=== PATIENT | female | born 1965 | race American Indian/Alaskan Native ===

== ENCOUNTER 2017-09-28 10:28 | Emergency (ER) | payer MEDICAID, OTHER ==
[2017-09-28 10:56] VITALS: BP 149/84; PULSE 84; RESP 16; TEMP 99.2; O2SAT 99
--- NOTE | 2017-09-28 12:41 | C.PDOC ---
History Of Present Illness 52-year-old female, presents to the emergency department with complaints of runny nose, cough and sore throat that started two days ago. Patient denies fever, dizziness, back pain, rashes, recent travel, or any other associated symptoms. No other complaints at this time. HPI: Influenza Time Seen by Provider: 09/28/17 10:56 Chief Complaint: Flu-like Symptoms History Per: Patient Exam Limitations: no limitations Onset/Duration Of Symptoms: Days Past Medical History Reviewed: Historical Data, Nursing Documentation, Vital Signs Vital Signs: Last Vital Signs Temp 99.2 F 09/28/17 10:53 Pulse 84 09/28/17 10:53 Resp 16 09/28/17 10:53 BP 149/84 09/28/17 10:53 Pulse Ox 99 09/28/17 10:53 - Medical History PMH: Arthritis, Bipolar Disorder, Depression, HTN - [facility] Procedures GROUP PSYCHOTHERAPY (04/18/16) INDIVID PSYCHOTHERAP NEC (02/09/15) INDIVIDUAL PSYCHOTHERAPY, BEHAVIORAL (04/18/16) INJECT/INFUSE NEC (01/03/14) OTHER GROUP THERAPY (02/09/15) PSYCHIAT DRUG THERAP NEC (09/11/14) Family History: States: No Known Family Hx - Social History Hx Alcohol Use: No Hx Substance Use: No - Immunization History Hx Tetanus Toxoid Vaccination: No Hx Influenza Vaccination: No Hx Pneumococcal Vaccination: No Review Of Systems Constitutional: Negative for: Fever, Chills ENT: Positive for: Nose Discharge, Throat Pain. Negative for: Ear Pain, Ear Discharge, Throat Swelling Respiratory: Positive for: Cough. Negative for: Shortness of Breath Gastrointestinal: Negative for: Nausea, Vomiting Skin: Negative for: Rash Neurological: Negative for: Headache, Dizziness Physical Exam - Physical Exam Appears: Non-toxic, No Acute Distress Skin: Warm, Dry, No Diaphoretic, No Rash, No Jaundice Head: Normacephalic Eye(s): bilateral: PERRL Nose: Normal, No Flaring, Discharge (clear B/L rhinorrhea) Oral Mucosa: Moist Lips: Normal Appearing Throat: No Erythema, No Exudate (Uvula midline.) Neck: Normal ROM, Trachea Midline, Supple, Other ((-)meningeal signs) Chest: Symmetrical Cardiovascular: Rhythm Regular, No Murmur Respiratory: Normal Breath Sounds, No Accessory Muscle Use, No Rales, No Rhonchi , No Wheezing Extremity: Normal ROM, No Deformity, No Swelling Neurological/Psych: Oriented x3 Medical Decision Making Medical Decision Making: Plan: Patient treated with Motrin, Tamiflu, Tylenol and Prednisone. Reassess: Patient is resting comfortably, tolerating PO, and is afebrile at this time. Clinical signs and symptoms are not suggestive of sepsis, meningitis, or pneumonia. Patient will be discharge home, and instructed to follow up with his/ her physician in 1-2 days without fail. Patient was instructed to return for any worsening symptoms, persistent fever, neck pain, rash, abdominal pain, or vomiting. - ECG O2 Sat by Pulse Oximetry: 99 (RA) Pulse Ox Interpretation: Normal Disposition Counseled Patient/Family Regarding: Diagnosis, Need For Followup, Rx Given - Disposition Referrals: [facility] [Outside] Disposition: HOME/ ROUTINE Disposition Time: 12:38 Condition: FAIR Additional Instructions: Follow up with your doctor, or our clinic. return to the ED with any other concerns. Prescriptions: Ibuprofen [Motrin] 600 mg PO TID #15 tab Oseltamivir [Tamiflu] 1 cap PO BID #10 cap Instructions: Flu, Adult (DC) Forms: General Discharge Instructions, [facility] (Nepali), Work Excuse - POA Present On Arrival: None - Clinical Impression Clinical Impression: Influenza, Influenza-like illness - Scribe Statement The provider has reviewed the documentation as recorded by the Scribe (Yolanda Harper) All medical record entries made by the Scribe were at my direction and personally dictated by me. I have reviewed the chart and agree that the record accurately reflects my personal performance of the history, physical exam, medical decision making, and the department course for this patient. I have also personally directed, reviewed, and agree with the discharge instructions and disposition.
== END 2017-09-28 12:44 | disposition home or self-care (01) ==
LOC: C.ER 10:28
DX: J11.1 Influenza due to unidentified influenza virus with other respiratory manifestations (principal)

== ENCOUNTER 2018-02-05 19:54 | Inpatient (IN) | payer MEDICAID, OTHER ==
[2018-02-05 19:54] VITALS: BMI 21.7
[2018-02-05 20:46] LABS: BASO # 0.1 K/uL (0.0-0.2); BASO % 1.1 % (0.0-2.0); EOS # 0.3 K/uL (0.0-0.7); EOS % 3.8 % (0.0-4.0); HEMOGLOBIN 12.2 g/dL (11.0-16.0); LYMPH # 3.2 K/uL (1.0-4.3); LYMPH % 37.8 % (20.0-40.0); MEAN CELL VOLUME 92.7 fL (81.0-99.0); MEAN CORPUSCULAR HGB CONC 34.5 g/dL (33.0-37.0); MONO # 0.7 K/uL (0.0-0.8); MONO % 7.7 % (0.0-10.0); NEUT # 4.2 K/uL (1.8-7.0); NEUT % 49.6 % (50.0-75.0); RBC 3.82 Mil/uL (3.80-5.20); RED CELL DISTRIBUTION WIDTH 13.7 % (11.5-14.5); WHITE BLOOD COUNT 8.5 K/uL (4.8-10.8)
--- NOTE | 2018-02-05 20:49 | C.PDOC ---
History Of Present Illness 53 y/o female presents to ED for detox from crack, alcohol and marijuana. Denies any other physical complaints. Time Seen by Provider: 02/05/18 20:13 Chief Complaint (Nursing): Medical Clearance History Per: Patient History/Exam Limitations: no limitations Onset/Duration Of Symptoms: Hrs Current Symptoms Are (Timing): Still Present Recent travel outside of the [place]: No Past Medical History Reviewed: Historical Data, Nursing Documentation, Vital Signs Vital Signs: Last Vital Signs Temp 98.1 F 02/05/18 20:13 Pulse 82 02/05/18 20:13 Resp 18 02/05/18 20:13 BP 122/85 02/05/18 20:13 Pulse Ox 98 02/05/18 21:28 - Medical History PMH: Arthritis, Bipolar Disorder, Bronchitis, Depression, HTN Denies: Alzheimer's Disease, Anemia, Asthma, Atrial Fibrillation, Cardia Arrhythmia, CHF, COPD, Dementia, Emphysema, HIV, Hypercholesterolemia, Hyperthyroidism, Hypothyroidism, Kidney Stones, Migraine, Mitral Valve Prolapse , Multiple Sclerosis, Parkinson's Disease, Peripheral Edema, Pneumonia, Pulmonary Embolism, Chronic Kidney Disease, Seizures, Sickle Cell Disease, Sleep Apnea, TIA Surgical History: Denies: Pacemaker - [facility] Procedures GROUP PSYCHOTHERAPY (04/18/16) INDIV GAS OR WATER METER INSTALLER FOR SUBSTANCE ABUSE TREATMENT, BEHAVIORAL (12/14/17) INDIVID PSYCHOTHERAP NEC (02/09/15) INDIVIDUAL PSYCHOTHERAPY, BEHAVIORAL (04/18/16) INJECT/INFUSE NEC (01/03/14) OTHER GROUP THERAPY (02/09/15) PSYCHIAT DRUG THERAP NEC (09/11/14) Family History: States: Unknown Family Hx - Social History Hx Alcohol Use: Yes Hx Substance Use: Yes - Immunization History Hx Tetanus Toxoid Vaccination: No Hx Influenza Vaccination: No Hx Pneumococcal Vaccination: No Review Of Systems Except As Marked, All Systems Reviewed And Found Negative. Constitutional: Positive for: Other (DETOX) Physical Exam - Physical Exam Appears: Well, Non-toxic, No Acute Distress, Other (No obvious trauma or injuries ) Skin: Normal Color, Warm, Dry Head: Atraumatic, Normacephalic Eye(s): bilateral: Normal Inspection, PERRL, EOMI Nose: Normal, No Discharge Oral Mucosa: Moist Neck: Supple Chest: Symmetrical, No Tenderness Cardiovascular: Rhythm Regular Respiratory: Normal Breath Sounds, No Decreased Breath Sounds, No Rales, No Rhonchi, No Wheezing Gastrointestinal/Abdominal: Soft, No Tenderness Extremity: Normal ROM, No Deformity Extremity: Bilateral: Atraumatic, Normal Color And Temperature, Normal ROM Neurological/Psych: Oriented x3, Normal Speech (Speaking in full sentences ), Other (No focal deficits ) Gait: Steady ED Course And Treatment - Laboratory Results Result Diagrams: 02/05/18 20:35 02/05/18 20:35 O2 Sat by Pulse Oximetry: 98 (RA) Pulse Ox Interpretation: Normal Medical Decision Making Medical Decision Making: Ordered blood work and urinalysis. 9:15PM: - Patient is medically cleared and is stable for admission. no urinary symptoms will not treat ua. Disposition - Disposition Disposition: HOSPITALIZED Disposition Time: 22:27 Condition: STABLE Forms: [facility] (Welsh) - Clinical Impression Clinical Impression: Alcohol use disorder - Scribe Statement The provider has reviewed the documentation as recorded by the Scribe Clarence Lopez All medical record entries made by the Scribe were at my direction and personally dictated by me. I have reviewed the chart and agree that the record accurately reflects my personal performance of the history, physical exam, medical decision making, and the department course for this patient. I have also personally directed, reviewed, and agree with the discharge instructions and disposition. Decision To Admit - Pt Status Changed To: Hospital Disposition Of: Inpatient - Admit Certification Admit to Inpatient:: After my assessment, the patient will require hospitalization for at least two midnights. This is because of the severity of symptoms shown, intensity of services needed, and/or the medical risk in this patient being treated as an outpatient. - InPatient: Physician Admission Certification: I certify that this patient requires 2 or more midnights of care for the following reason:: needs detox - . Bed Request Type: Detox Admitting Physician: Estrella Cota Patient Diagnosis: Alcohol use disorder
[2018-02-05 20:50] LABS: SQUAMOUS EPITHIAL 23 /hpf (0-5); URINE BACTERIA RARE (<OCC); URINE BILIRUBIN NEGATIVE (NEGATIVE); URINE BLOOD NEGATIVE (NEGATIVE); URINE CLARITY Hazy (Clear); URINE COLOR Yellow (YELLOW); URINE GLUCOSE (UA) NORMAL (Normal); URINE LEUKOCYTE ESTERASE 1+ Leu/uL (Negative); URINE PROTEIN NEGATIVE (NEGATIVE)
[2018-02-05 20:59] LABS: ALB/GLOB RATIO 1.4 (1.0-2.1); ALBUMIN 4.4 g/dL (3.5-5.0); ALT/SGPT 19 U/L (9-52); AST/SGOT 20 U/L (14-36); BLOOD UREA NITROGEN 15 mg/dL (7-17); CALCIUM 9.3 mg/dl (8.6-10.4); GFR AFRICAN-AMERICAN > 60; GFR NON-AFRICAN AMERICAN > 60
[2018-02-05 21:02] LABS: BARBITURATES, UR NEGATIVE (NEGATIVE); BENZODIAZEPINES, UR NEGATIVE (NEGATIVE); OPIATES, UR NEGATIVE (NEGATIVE); PHENCYCLIDINE, UR NEGATIVE (NEGATIVE)
--- NOTE | 2018-02-05 22:36 | PCM.BM ---
<Maycol Medina - Last Filed: 02/05/18 22:35> Treatment Plan Problems - Problems identified on initial assessmt potential for alcohol withdrawal Date Initiated: 02/05/18 Time Initiated: 22:35 Status: Active Treatment assets and liabiliti Patient Assests: ADL independent, negotiates basic needs, cognitively intact Patient Liabilities: substance abuse, medical problems - Milieu Protocol Maintain good personal hygiene: daily Encourage regular showers, daily Remind patient to perform daily oral care, daily Assist patient to perform ADL's Conduct patient checks and document Observation sheet: Q15 minutes Maintain personal safety: every shift Educate patient to report safety concerns to staff, every shift Monitor environment for contraband/sharps Medication safety: Monitor for expected outcome, potential side effects: every shift, Assess barriers to learning: every shift, Assess readiness for medication education: every shift <Enzo Busch - Last Filed: 02/06/18 14:56> - Diagnosis (1) Alcohol use disorder Status: Acute Interventions: 02/06/18 14:56 * Assess 7x/week regarding severity of withdrawal * Educate regarding risks, benefits, side effects and alternatives of medications * Use Motivational Interviewing for abstinence * Use CBT for relapse prevention * Medication management for withdrawal symptoms * Encourage medication assisted treatment * (2) Bipolar 1 disorder Status: Acute Interventions: 02/06/18 14:57 * Assess/adjust medications daily and /or as needed * See patient on an individual basis 7x/week to assess level of manic behaviors and stability * Discuss risks, benefits, side effects and alternatives of medications * <Anjana Zamora - Last Filed: 02/06/18 15:18> Family Contact Family involvement: Dee/SO not involved - Goals for Treatment Patient goals for treatment: Complete detox and transition to IOP. Discharge/Continuing Care - Education Needs Education Needs: Patient Medication, Patient Diagnosis/Disease Process, Patient Coping Skills, Patient Anger Management skills, Patient Placement options, Patient Community resources - Discharge Discharge Criteria: No longer exhibiting s/s of withdrawal, Reduction of target symptoms Discharge to:: Home - Treatment Team Participation Patient/Family/SO Statement: 02/06/18 15:18 "I wanna go to IOP from here..." Discussed with Family/SO: No Was Patient/Family/SO present at Treatment Team Meeting: Yes
[2018-02-06] MEDS ORDERED: Aluminum Hydroxide/Magnesium Hydroxide Susp (30 mL) PO PRN (00:43)
[2018-02-06] MEDS ORDERED: Benzocaine/Menthol (Cepacol) Lozenge PO PRN (00:43)
[2018-02-06] MEDS ORDERED: guaiFENesin DM 200 mg-20 mg/10 ml UD PO PRN (00:43)
[2018-02-06] MEDS ORDERED: Albuterol HFA 90 mcg/actuation (8 g) INH PRN (00:46)
[2018-02-06] MEDS: Multiple Vitamins Tab PO SCH (10:03)
--- NOTE | 2018-02-06 15:00 | PCM.PSYCH ---
Initial Psychiatric Evaluation - Initial Psychiatric Evaluation Type of Admission: Voluntary Legal Status: Capacity Chief Complaint (in patient's own words): "I want to stop everything" History of Present Illness and Precipitating Events: The patient is seen, chart reviewed and case discussed. This is a 53-year-old -[place] female with bipolar disorder, single with 4 children, all adults, lives with a friend in [place]. She says she doesn't work and she is on welfare. She came here for alcohol detox but also complains of using cocaine a lot. She says she drinks 10 off the 24 ounce cans every day. She started when she was 17 years old. She had been to detox 8 times and rehabilitation 10 times. The longest sobriety was 13 months and it ended in August 2017. She uses cocaine by smoking 12 bags. She also smokes 8 cigarettes a day and denies all other drugs. Past psych history: She was diagnosed with bipolar depression and hospitalized 4 times in psychiatry, the last one was at [place] in November this year. She is followed by [facility] program by [facility] and she wants to go today or [facility] program. She says that if she doesn't to "something daily, I may relapse." She denies feeling suicidal homicidal and no delusions or hallucinations elicited. Medical history: Hypertension and rheumatoid arthritis. Family psych history: Sister used alcohol a lot in the past. Current Medications: Active Medications Generic Name Dose Route Start Last Admin Trade Name Freq PRN Reason Stop Dose Admin Acetaminophen 650 mg 02/06/18 00:43 Tylenol 325mg Tab PO Q4H PRN Pain, moderate (4-7) Al Hydrox/Mg Hydrox/Simethicone 30 ml 02/06/18 00:43 Maalox 30 Ml PO TID PRN Indigestion / Heartburn Albuterol 1 puff 02/06/18 00:46 02/06/18 11:00 Ventolin Hfa 90 Mcg/Actuation (8 G) INH 1 inhaler RQ6 PRN Administration Wheezing Amlodipine Besylate 10 mg 02/06/18 10:30 02/06/18 10:58 Norvasc PO 10 mg DAILY MOUNIKA Administration Benzocaine/Menthol 1 kiesha 02/06/18 00:43 Cepacol Sore Throat PO QID PRN Sore Throat Chlordiazepoxide 25 mg 02/06/18 08:50 Librium PO Q4H PRN Alcohol Withdrawal Clonidine HCl 0.1 mg 02/06/18 00:43 Catapres PO Q8 PRN COWS Score More or Equal to 5 Docusate Sodium 100 mg 02/06/18 10:00 02/06/18 10:03 Colace PO Not Given DAILY MOUNIKA Folic Acid 1 mg 02/06/18 10:00 02/06/18 10:03 Folic Acid PO 1 mg DAILY MOUNIKA Administration Gabapentin 300 mg 02/06/18 10:30 02/06/18 10:57 Neurontin PO 300 mg BID MOUNIKA Administration Guaifenesin/Dextromethorphan 10 ml 02/06/18 00:43 Robitussin Dm PO Q4H PRN Cough and congestion Hydrochlorothiazide 12.5 mg 02/06/18 10:30 02/06/18 10:58 Microzide PO 12.5 mg DAILY MOUNIKA Administration Hydroxyzine HCl 25 mg 02/06/18 00:58 Atarax PO 02/11/18 00:59 Q6 PRN Anxiety Loperamide HCl 2 mg 02/06/18 00:43 Imodium PO Q8 PRN Diarrhea Multivitamins 1 tab 02/06/18 10:00 02/06/18 10:03 Hexavitamin PO 1 tab DAILY [facility] Administration Ondansetron HCl 4 mg 02/06/18 00:43 Zofran Tab PO Q8 PRN Nausea/Vomiting Quetiapine Fumarate 200 mg 02/06/18 22:00 Seroquel PO HS [facility] Thiamine HCl 100 mg 02/06/18 10:00 02/06/18 10:03 Vitamin B1 Tab PO 100 mg DAILY MOUNIKA Administration Past Psychiatric History - Past Psychiatric History Previous Treatment History: Inpatient Pertinent Medical Hx (Current Medical&Sleep Prob, Allergies): Allergies Allergy/AdvReac Type Severity Reaction Status Date / Time No Known Allergies Allergy Verified 01/22/18 07:59 Hydrochlorothiazide [Microzide] 12.5 mg PO DAILY 12/14/17 Divalproex [Depakote DR(*BID*)] 500 mg PO BID 30 Days #60 tcp 12/18/17 Gabapentin [Neurontin] 100 mg PO TID 30 Days #90 cap 12/18/17 QUEtiapine [SEROquel] 100 mg PO HS 01/26/18 amLODIPine [Norvasc] 10 mg PO DAILY 01/26/18 hydrOXYzine Pamoate [Vistaril] 75 mg PO DAILY 01/26/18 Review of Systems - Neurological Neurological: UNREMARKABLE - Psychiatric Psychiatric: Abnormal Sleep Pattern, Anxiety, Change in Appetite, Difficulty Concentrating, Irritability, Mood Swings. absent: Hallucinations, Homicidal Ideation, Paranoia, Suicidal Ideation Mental Status Examination - Personal Presentation Personal Presentation: Looks older than stated age - Affect Affect: Constricted - Motor Activity Motor Activity: Calm - Reliability in Providing Information Reliability in Providing Information: Good - Speech Speech: Organized - Mood Mood: Anxious - Formal Thought Process Formal Thought Process: No Impairment - Cognitive Functions Orientation: Person, Place, Situation, Time Sensorium: Alert Attention/Concentration: Easily distracted Abstract Thinking: [place] Estimate of Intelligence: Below average Judgement: Intact, as evidence by: Insight regarding need for hospitalization Memory: Recent intact, as evidence by: Ability to recall events of the day, Remote intact, as evidenced by: Ability to recall historical events - Risk Risk: Withdrawal, Diminished functioning - Strength & Assets Inventory Strength & Assets Inventory: Cooperative - Limitations Limitations: Other DSM 5 DX - DSM 5 DSM 5 Diagnosis: Alcohol withdrawal Alcohol use d/o- severe Bipolar disorder - type I Cocaine use d/o- severe Tobacco use d/o- moderate - Recommended/Plan of Treatment Treatment Recommendations and Plan of Treatment: Taper with librium when she withdraws more Seroquel for Bipolar I d/o Gabapentin for augmentation if needed As needed medications All risks, benefits and alternatives of the meds discussed, and the pt agreed and understood. Attend groups and activities Supportive therapy and psychoeducation NE for abstinence CBT for relapse prevention Encourage MAT, ie naltrexone Refer to IOP, and self-help groups Smoking cessation with NE Nicotine patch if needed 34 min Projected ELOS: 2-3 days Prognosis: good w treatment - Smoking Cessation Smoking Cessation Initiated: Yes
[2018-02-07 05:26] VITALS: O2SAT 100
[2018-02-07] MEDS: Multiple Vitamins Tab PO SCH (09:29)
[2018-02-07] MEDS ORDERED: Naproxen 550 mg Tab PO PRN (10:39)
--- NOTE | 2018-02-07 10:42 | PCM.PYCHDC ---
Mental Status Examination - Mental Status Examination Orientation: Person, Place, Situation, Time Memory: Intact Mood: Anxious Affect: Constricted Speech: Appropriate Attention: WNL Concentration: Poor Association: WNL Fund of Knowledge: Poor Formal Thought Process: No Impairment Suicidal Ideation: No Current Homicidal Ideation?: No Discharge Summary - Discharge Note Reason for Hospitalization: Alcohol detox Consultations:: List each consultation separately and include: 1. Reason for request. 2. Findings. 3. Follow-up Summary of Hospital Course include:: 1. Description of specific treatment plan utilized for patients during their course of treatmen. 2. Summarize the time- course for resolution of acute symptoms and/or regressed behaviors. 3. Describe issues identified and worked on during hospitalization. 4. Describe medication utilized. 5. Describe medical problems identified and treated. 6. Reassessment of suicide risk Summary of Hospital Course: The patient is seen, chart reviewed and case discussed. On admission: This is a 53-year-old -[place] female with bipolar disorder, single with 4 children, all adults, lives with a friend in [place]. She says she doesn't work and she is on welfare. She came here for alcohol detox but also complains of using cocaine a lot. She says she drinks 10 off the 24 ounce cans every day. She started when she was 17 years old. She had been to detox 8 times and rehabilitation 10 times. The longest sobriety was 13 months and it ended in August 2017. She uses cocaine by smoking 12 bags. She also smokes 8 cigarettes a day and denies all other drugs. Past psych history: She was diagnosed with bipolar depression and hospitalized 4 times in psychiatry, the last one was at [place] in November this year. She is followed by [facility] program by [facility] and she wants to go today or [facility] program. She says that if she doesn't to "something daily, I may relapse." She denies feeling suicidal homicidal and no delusions or hallucinations elicited. Medical history: Hypertension and rheumatoid arthritis. Family psych history: Sister used alcohol a lot in the past. Hospital course: The pt was admitted and started on treatment with psychotherapy, support, psychoeducation and medications. ID and CBT used. The pt attended groups and activities, as well as milieu therapy. All the risks and benefits of medications are discussed and the patient understood and agreed. The pt improved with the treatments provided. She had minimal wdw sxs and so her detox is kept short. After care discussed with the patient. She will attend [facility]. - Final Diagnosis (DSM 5) Condition upon Discharge: IMPROVED DSM 5: Alcohol withdrawal Alcohol use d/o- severe Bipolar disorder - type I Cocaine use d/o- severe Tobacco use d/o- moderate Disposition: HOME/ ROUTINE Follow-up Treatment Plan: Continue below medications after discharge. Follow after care plan as discussed. Use relapse prevention skills Return to ER or call 911 if suicidal, homicidal or symptoms relapse. Stay away from stress, alcohol and drugs. See primary doctor regularly and get labs. Prescriptions/Medication Reconciliation: Albuterol HFA [Ventolin HFA 90 mcg/actuation (8 g)] 1 puff INH RQ6 PRN #1 inhaler PRN Reason: Wheezing amLODIPine [Norvasc] 10 mg PO DAILY #30 tab Docusate [Colace] 100 mg PO DAILY #30 cap Gabapentin [Neurontin] 300 mg PO BID #60 cap Hydrochlorothiazide [Microzide] 12.5 mg PO DAILY #30 capsule Multivitamins [Hexavitamin] 1 tab PO DAILY #30 tab QUEtiapine [SEROquel] 200 mg PO HS #30 tab
[2018-02-07 12:24] VITALS: BP 123/60; PULSE 61; RESP 20; TEMP 98.5
== END 2018-02-07 13:15 | disposition home or self-care (01) | DRG 751 ==
LOC: C.ER 19:54 → C.7D 22:23
PROVIDERS: ADMIT Psychiatry & Neurology Psychiatry; ATTEND Psychiatry & Neurology Psychiatry
DX: F10.230 Alcohol dependence with withdrawal, uncomplicated (principal); F14.90 Cocaine use, unspecified, uncomplicated; F17.210 Nicotine dependence, cigarettes, uncomplicated; F31.9 Bipolar disorder, unspecified; I10 Essential (primary) hypertension; M06.9 Rheumatoid arthritis, unspecified; F12.10 Cannabis abuse, uncomplicated; Y90.0 Blood alcohol level of less than 20 mg/100 ml

== ENCOUNTER 2018-09-12 09:47 | Emergency (ER) | payer MEDICAID, OTHER ==
[2018-09-12 09:47] VITALS: BMI 21.7
[2018-09-12 10:03] VITALS: BP 158/95; PULSE 65; RESP 18; TEMP 98; O2SAT 97
--- NOTE | 2018-09-12 10:09 | C.PDOC ---
History Of Present Illness 53 y/o female with a PMHx of HTN, bronchitis, asthma, cocaine and ETOH abuse, and bipolar disorder, presents to the ED for exacerbation of chronic back pain for 3 days. Patient is s/p accidental slip and fall, landing on her lower back. She reports history of chronic low back pain, and takes an unknown prescribed pain medication, which has not been relieving pain since the injury. Patient complains of pain to the bilateral lower back and left buttock. Pain worsens with movement and standing fully upright. Otherwise she denies any numbness, weakness, tingling, or bowel or bladder incontinence. Patient also reports she ran out of her blood pressure meds states she is on lisinopril and HCTZ but cannot recall dose. Time Seen by Provider: 09/12/18 10:07 Chief Complaint (Nursing): Back Pain History Per: Patient History/Exam Limitations: no limitations Onset/Duration Of Symptoms: Days (3) Current Symptoms Are (Timing): Still Present Quality Of Discomfort: "Pain" Previous Symptoms: Back Pain Associated Symptoms: None Exacerbating Factor(s): Movement, Standing Past Medical History Reviewed: Historical Data, Nursing Documentation, Vital Signs Vital Signs: Last Vital Signs Temp 98 F 09/12/18 09:59 Pulse 65 09/12/18 09:59 Resp 18 09/12/18 09:59 BP 158/95 H 09/12/18 09:59 Pulse Ox 97 09/12/18 09:59 - Medical History PMH: Arthritis, Asthma, Bipolar Disorder, Bronchitis, Depression, HTN, Chronic Pain (low back) Denies: Alzheimer's Disease, Anemia, Atrial Fibrillation, Cardia Arrhythmia, CHF, COPD, Dementia, Diabetes, Emphysema, Hepatitis, HIV, Hypercholesterolemia, Hyperthyroidism, Hypothyroidism, Kidney Stones, Migraine, Mitral Valve Prolapse, Multiple Sclerosis, Parkinson's Disease, Peripheral Edema, Pneumonia, Pulmonary Embolism, Chronic Kidney Disease, Seizures, Sickle Cell Disease, Sexually Transmitted Disease, Sleep Apnea, TIA Surgical History: Denies: Pacemaker - [facility] Procedures (06/24/18) GROUP PSYCHOTHERAPY (06/24/18) INDIV BRASS BOBBIN WINDER FOR SUBSTANCE ABUSE TREATMENT, BEHAVIORAL (12/14/17) INDIVID PSYCHOTHERAP NEC (02/09/15) INDIVIDUAL PSYCHOTHERAPY, BEHAVIORAL (04/18/16) INDIVIDUAL PSYCHOTHERAPY, COGNITIVE-BEHAVIORAL (06/24/18) INJECT/INFUSE NEC (01/03/14) INTRODUCTION OF SERUM/TOX/VACCINE INTO MUSCLE, PERC APPROACH (06/24/18) OTHER GROUP THERAPY (02/09/15) PSYCHIAT DRUG THERAP NEC (09/11/14) Family History: States: Unknown Family Hx - Social History Hx Alcohol Use: No Hx Substance Use: No - Immunization History Hx Tetanus Toxoid Vaccination: No Hx Influenza Vaccination: Yes Hx Pneumococcal Vaccination: No Review Of Systems Constitutional: Negative for: Fever, Chills Cardiovascular: Negative for: Chest Pain Respiratory: Negative for: Shortness of Breath Gastrointestinal: Negative for: Abdominal Pain Musculoskeletal: Positive for: Back Pain, Leg Pain (left buttock) Skin: Negative for: Lesions, Bruising Neurological: Negative for: Weakness, Numbness, Incoordination Physical Exam - Physical Exam Appears: Non-toxic, No Acute Distress Skin: Warm, Dry, No Rash Head: Atraumatic, Normacephalic Eye(s): bilateral: Normal Inspection, PERRL, EOMI Neck: Normal ROM, Supple Chest: Symmetrical Respiratory: No Accessory Muscle Use, Other (NARD) Back: Normal Inspection (no rash or skin changes), No Vertebral Tenderness, Muscle Spasm (and localized tenderness to right lumbar and lower lumbar areas), Other (Pain with extension) Extremity: Bilateral: Atraumatic, Normal ROM (x 4) Pulses: Left Dorsalis Pedis: Normal, Right Dorsalis Pedis: Normal Neurological/Psych: Oriented x3, Normal Motor, Normal Sensation, Other (Neurologically intact; Patient appears calm, pleasant, no acute intoxication) Gait: Steady ED Course And Treatment O2 Sat by Pulse Oximetry: 97 (RA) Pulse Ox Interpretation: Normal Progress - Data Reviewed Data Reviewed: Old records Medical Decision Making Medical Decision Making: Impression: Lumbar strain Initial Plan: - 60 mg IM Toradol - 10 mg PO Flexeril Patient will be discharged home with muscle relaxant and HTN meds as requested. Advised to follow up with PMD or the clinic. Disposition Counseled Patient/Family Regarding: Diagnosis, Need For Followup, Rx Given - Disposition Referrals: YOUR,PMD [Other] Disposition: HOME/ ROUTINE Disposition Time: 10:26 Condition: IMPROVED Prescriptions: Cyclobenzaprine [Flexeril] 10 mg PO TID #15 tab Hydrochlorothiazide [Microzide] 12.5 mg PO DAILY #14 capsule Ibuprofen [Motrin] 600 mg PO Q6 #30 tab Lisinopril [Zestril] 5 mg PO DAILY #14 tab Instructions: Low Back Pain (DC) Forms: [employer] (Bermudian) - Clinical Impression Clinical Impression: Low back strain, Acute exacerbation of chronic low back pain, Medication refill - Scribe Statement The provider has reviewed the documentation as recorded by the Radha Esquivel Provider Attestation: All medical record entries made by the Radha were at my direction and personally dictated by me. I have reviewed the chart and agree that the record accurately reflects my personal performance of the history, physical exam, medical decision making, and the department course for this patient. I have also personally directed, reviewed, and agree with the discharge instructions and disposition.
== END 2018-09-12 10:51 | disposition home or self-care (01) ==
LOC: C.ER 09:47
DX: S39.012A Strain of muscle, fascia and tendon of lower back, initial encounter (principal); W01.0XXA Fall on same level from slipping, tripping and stumbling without subsequent striking against object, initial encounter; G89.29 Other chronic pain; Z76.0 Encounter for issue of repeat prescription
CPT/HCPCS: 96372; 99283; J1885

== ENCOUNTER 2018-10-16 09:10 | Emergency (ER) | payer MEDICAID ==
[2018-10-16 09:10] VITALS: BMI 21.7
[2018-10-16 09:19] VITALS: BP 166/99; PULSE 80; RESP 16; TEMP 97.3; O2SAT 100
[2018-10-16] MEDS ORDERED: Naproxen 550 mg Tab PO STA (09:57)
[2018-10-16] MEDS ORDERED: Lidocaine 5% Patch TD STA (09:58)
--- NOTE | 2018-10-16 10:01 | C.PDOC ---
History Of Present Illness 53 y/o female presents to the ED complaining of a productive cough with yellow mucous for 3 days. The coughing is worse at night. Additionally patient complains of chronic right lower back pain. She denies any fall or injuries. Otherwise patient denies fevers, chills, chest pain, or SOB. She has seen her PMD but states he only told her to use nebulizers as needed, with no improvement. Of note, patient has hx of tobacco smoking. Time Seen by Provider: 10/16/18 09:24 Chief Complaint (Nursing): Cough, Cold, Congestion History Per: Patient History/Exam Limitations: no limitations Onset/Duration Of Symptoms: Days Current Symptoms Are (Timing): Still Present Associated Symptoms: Cough, Sputum Past Medical History Reviewed: Historical Data, Nursing Documentation, Vital Signs Vital Signs: Last Vital Signs Temp 97.3 F L 10/16/18 09:16 Pulse 80 10/16/18 09:16 Resp 16 10/16/18 09:16 BP 166/99 H 10/16/18 09:16 Pulse Ox 100 10/16/18 09:16 - Medical History PMH: Arthritis, Asthma, Bipolar Disorder, Bronchitis, Depression, HTN, Chronic Pain (low back) Denies: Alzheimer's Disease, Anemia, Atrial Fibrillation, Cardia Arrhythmia, CHF, COPD, Dementia, Diabetes, Emphysema, Hepatitis, HIV, Hypercholesterolemia, Hyperthyroidism, Hypothyroidism, Kidney Stones, Migraine, Mitral Valve Prolapse, Multiple Sclerosis, Parkinson's Disease, Peripheral Edema, Pneumonia, Pulmonary Embolism, Chronic Kidney Disease, Seizures, Sickle Cell Disease, Sexually Transmitted Disease, Sleep Apnea, TIA Surgical History: Denies: Pacemaker - [facility] Procedures (06/24/18) GROUP PSYCHOTHERAPY (06/24/18) INDIV FURNITURE UPHOLSTERY MECHANIC FOR SUBSTANCE ABUSE TREATMENT, BEHAVIORAL (12/14/17) INDIVID PSYCHOTHERAP NEC (02/09/15) INDIVIDUAL PSYCHOTHERAPY, BEHAVIORAL (04/18/16) INDIVIDUAL PSYCHOTHERAPY, COGNITIVE-BEHAVIORAL (06/24/18) INJECT/INFUSE NEC (01/03/14) INTRODUCTION OF SERUM/TOX/VACCINE INTO MUSCLE, PERC APPROACH (06/24/18) OTHER GROUP THERAPY (02/09/15) PSYCHIAT DRUG THERAP NEC (09/11/14) Family History: States: Unknown Family Hx - Social History Hx Alcohol Use: No Hx Substance Use: No - Immunization History Hx Tetanus Toxoid Vaccination: No Hx Influenza Vaccination: Yes Hx Pneumococcal Vaccination: Yes Review Of Systems Constitutional: Negative for: Fever, Chills Cardiovascular: Negative for: Chest Pain Respiratory: Positive for: Cough, Sputum. Negative for: Shortness of Breath Gastrointestinal: Negative for: Vomiting, Diarrhea Musculoskeletal: Positive for: Back Pain Skin: Negative for: Rash Neurological: Negative for: Headache, Dizziness Physical Exam - Physical Exam Appears: Well, Non-toxic, No Acute Distress Skin: Warm, Dry Head: Atraumatic, Normacephalic Eye(s): bilateral: Normal Inspection, PERRL, EOMI Oral Mucosa: Moist Neck: Normal ROM Chest: Symmetrical Cardiovascular: Rhythm Regular, No Murmur Respiratory: Normal Breath Sounds, No Decreased Breath Sounds, No Rales, No Rhonchi, No Wheezing, Other (Speaking in full sentences) Gastrointestinal/Abdominal: Soft, No Tenderness, No Distention Back: Paraspinal Tenderness (Right paralumbar tenderness, near L3-L4 level) Extremity: Normal ROM, No Calf Tenderness, No Swelling Neurological/Psych: Oriented x3, Normal Speech Gait: Steady ED Course And Treatment O2 Sat by Pulse Oximetry: 100 (RA) Pulse Ox Interpretation: Normal - Radiology CXR: Interpreted by Al CXR Interpretation: Yes: No Acute Disease. No: Infiltrates Progress Note: Patient treated with 60 mg IM Toradol, 5 mg PO Valium, Lidoderm patch x1, and 100 mg Tessalon Perles. X-ray obtained, showing no infiltrates or effusions. On re-evaluation patient appears comfortably and is speaking in full sentences. Plan is to discharge patient home with cough medication, muscle relaxant, and pain medication. Disposition Counseled Patient/Family Regarding: Diagnosis, Need For Followup, Rx Given - Disposition Referrals: Rosendo An MD [Medical Doctor] - Disposition: HOME/ ROUTINE Disposition Time: 10:15 Condition: STABLE Additional Instructions: FOLLOW UP WITH YOUR DOCTOR IN 1-2 DAYS USE MEDICATIONS NEEDED/DIRECTED RETURN TO ER IF SYMPTOMS WORSEN Prescriptions: Benzonatate [Tessalon Perles] 100 mg PO BID PRN #20 sgl PRN Reason: Cough Diazepam [Valium] 2 mg PO BID PRN #14 tablet PRN Reason: musle spasm Lidocaine 5% [Lidoderm] 1 patch TOP DAILY PRN #10 patch PRN Reason: pain Naproxen [Naprosyn] 1 tab PO BID PRN #25 tab PRN Reason: Pain Instructions: Low Back Pain (DC), Viral Upper Respiratory Infection, Adult (DC) Forms: [employer] (Bengali) Print Language: KINYARWANDA - Clinical Impression Clinical Impression: Low back pain, Viral upper respiratory infection - Scribe Statement The provider has reviewed the documentation as recorded by the Scribe Trish Esquivel Provider Attestation: All medical record entries made by the Earleneibe were at my direction and personally dictated by me. I have reviewed the chart and agree that the record accurately reflects my personal performance of the history, physical exam, medical decision making, and the department course for this patient. I have also personally directed, reviewed, and agree with the discharge instructions and disposition.
[2018-10-16] MEDS ORDERED: Lidocaine 5% Patch TD ONE (10:18)
[2018-10-16] MEDS ORDERED: Naproxen 550 mg Tab PO ONE (10:20)
--- NOTE | 2018-10-16 14:05 | RAD ---
Date of service: 10/16/2018 HISTORY: productive cough COMPARISON: No prior. TECHNIQUE: Chest PA and lateral FINDINGS: LUNGS: No consolidation. Clear lungs. PLEURA: No significant pleural effusion identified. No pneumothorax apparent. CARDIOVASCULAR: No aortic atherosclerotic calcification present. Cardiomegaly pulmonary vasculature probably top-normal. OSSEOUS STRUCTURES: Mild thoracic spondylosis. VISUALIZED UPPER ABDOMEN: Normal. OTHER FINDINGS: None. IMPRESSION: No pulmonary infiltrate. Cardiomegaly. Pulmonary vasculature probably top-normal.
== END 2018-10-16 10:51 | disposition home or self-care (01) ==
LOC: C.ER 09:10
DX: J06.9 Acute upper respiratory infection, unspecified (principal); M54.5 Low back pain; Z87.891 Personal history of nicotine dependence
CPT/HCPCS: 71046; 96372; 99283; J1885

== ENCOUNTER 2018-12-24 10:28 | Emergency (ER) | payer MEDICAID ==
[2018-12-24 10:28] VITALS: BMI 21.7
[2018-12-24 10:33] VITALS: BP 133/88; PULSE 85; RESP 18; TEMP 98.9; O2SAT 99
[2018-12-24] MEDS ORDERED: Tdap Vaccine 0.5 ml Vial (10-64 yrs) IM ONE ×2 (10:41→10:48)
[2018-12-24] MEDS ORDERED: Bacitracin 500 Units/gm Oint Foilpak UD TOP ONE (10:42)
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
[2018-12-24] MEDS ORDERED: Bacitracin 500 Units/gm Oint Foilpak UD ONE (10:48)
== END 2018-12-24 11:02 | disposition home or self-care (01) ==
LOC: C.ER 10:28
DX: T23.222A Burn of second degree of single left finger (nail) except thumb, initial encounter (principal); X10.2XXA Contact with fats and cooking oils, initial encounter; S39.011A Strain of muscle, fascia and tendon of abdomen, initial encounter; W10.9XXA Fall (on) (from) unspecified stairs and steps, initial encounter

== ENCOUNTER 2018-12-28 09:29 | Emergency (ER) | payer MEDICAID, OTHER ==
[2018-12-28 09:29] VITALS: BMI 21.7
[2018-12-28 09:37] VITALS: BP 154/90; PULSE 90; RESP 18; TEMP 98.3; O2SAT 97
--- NOTE | 2018-12-28 10:26 | C.PDOC ---
History Of Present Illness 53 year old female with PMHx of eczema presents to the complaining of rash to the left side of her neck for several weeks. States the rash is usually on her arms but it is now on her neck. Reports she has Hydrocortisone cream at home but it is . Also complains of left groin pain status post falling down the steps and landing on her buttocks 4 days ago. Denies any LOC, head injury, weakness, numbness, bowel or bladder changes, or any other symptoms. Reports it only hurts when she walks. PMD: Dr. Moore Chief Complaint (Nursing): Abnormal Skin Integrity History Per: Patient History/Exam Limitations: no limitations Onset/Duration Of Symptoms: Days Current Symptoms Are (Timing): Still Present Location Of Injury: Left: Neck Past Medical History Reviewed: Historical Data, Nursing Documentation, Vital Signs Vital Signs: Last Vital Signs Temp 98.3 F 12/28/18 09:34 Pulse 90 12/28/18 09:34 Resp 18 12/28/18 09:34 BP 154/90 H 12/28/18 09:34 Pulse Ox 97 12/28/18 09:34 Primary Care Provider: Non [facility] Provider, - Medical History PMH: Arthritis, Asthma, Bipolar Disorder, Bronchitis, Depression, HTN, Chronic Pain (low back) Denies: Alzheimer's Disease, Anemia, Atrial Fibrillation, Cardia Arrhythmia, CHF, COPD, Dementia, Diabetes, Emphysema, Hepatitis, HIV, Hypercholesterolemia, Hyperthyroidism, Hypothyroidism, Kidney Stones, Migraine, Mitral Valve Prolapse, Multiple Sclerosis, Parkinson's Disease, Peripheral Edema, Pneumonia, Pulmonary Embolism, Chronic Kidney Disease, Seizures, Sickle Cell Disease, Sexually Transmitted Disease, Sleep Apnea, TIA Surgical History: No Surg Hx Denies: Pacemaker - [facility] Procedures (06/24/18) GROUP PSYCHOTHERAPY (06/24/18) INDIV SALES COMPENSATION ANALYST FOR SUBSTANCE ABUSE TREATMENT, BEHAVIORAL (12/14/17) INDIVID PSYCHOTHERAP NEC (02/09/15) INDIVIDUAL PSYCHOTHERAPY, BEHAVIORAL (04/18/16) INDIVIDUAL PSYCHOTHERAPY, COGNITIVE-BEHAVIORAL (06/24/18) INJECT/INFUSE NEC (01/03/14) INTRODUCTION OF SERUM/TOX/VACCINE INTO MUSCLE, PERC APPROACH (06/24/18) OTHER GROUP THERAPY (02/09/15) PSYCHIAT DRUG THERAP NEC (09/11/14) Family History: States: No Known Family Hx - Social History Hx Alcohol Use: Yes Hx Substance Use: No - Immunization History Hx Tetanus Toxoid Vaccination: No Hx Influenza Vaccination: Yes Hx Pneumococcal Vaccination: Yes Review Of Systems Except As Marked, All Systems Reviewed And Found Negative. Constitutional: Negative for: Fever, Chills Genitourinary: Negative for: Incontinence Musculoskeletal: Positive for: Other (left groin pain ) Neurological: Negative for: Weakness, Numbness Physical Exam - Physical Exam Appears: Non-toxic, No Acute Distress Skin: Warm, Dry, Other (macular rash with hyperkeratotic skin to left lateral neck, no erythema, no postules, no vesicles ) Head: Normacephalic Eye(s): bilateral: PERRL, EOMI, left: Other (Conjunctiva clear) Oral Mucosa: Moist Chest: Symmetrical Cardiovascular: Rhythm Regular, No Murmur Respiratory: No Rales, No Rhonchi, No Wheezing, Other (Good air movement, Lungs CTA bilaterally) Extremity: Tenderness (mild tenderness to left proximal thigh ), Capillary Refill <2 Sec Extremity: Bilateral: Normal Color And Temperature, Normal ROM Pulses: Left Dorsalis Pedis: Normal, Right Dorsalis Pedis: Normal Neurological/Psych: Oriented x3, Normal Speech, Normal Motor (5/5 muscle strength), Normal Sensation, Other (GCS 15, CN 2-12 intact) Gait: Steady ED Course And Treatment O2 Sat by Pulse Oximetry: 97 (RA) Pulse Ox Interpretation: Normal Medical Decision Making Medical Decision Making: Patient given Rx for Hydrocortisone cream and Naproxen. Patient instructed to follow up with PMD in 2 days. Advised to return to the ED if symptoms worsen or persist. Disposition Counseled Patient/Family Regarding: Diagnosis, Need For Followup, Rx Given - Disposition Disposition: HOME/ ROUTINE Disposition Time: 10:20 Condition: GOOD Additional Instructions: MIROSLAVA JARVIS, thank you for letting us take care of you today. Your provider was Martha Bella MD and you were treated for RASH ON NECK. The emergency medical care you received today was directed at your acute symptoms. If you were prescribed any medication, please fill it and take as directed. It may take several days for your symptoms to resolve. Return to the Emergency Department if your symptoms worsen, do not improve, or if you have any other problems. Please contact your doctor in 2 days for a follow up appointment. Bring any paperwork you were given at discharge with you along with any medications you are taking to your follow up visit. Our treatment cannot replace ongoing medical care by a primary care provider outside of the emergency department. [facility] you [facility] to be part of your care today. Prescriptions: Hydrocortisone 1% Cream [Cortizone 1% Cream] 1 applic TOP BID #1 tube Naproxen [Naprosyn] 500 mg PO BID PRN #30 tablet PRN Reason: Pain, Moderate (4-7) Instructions: Muscle Strain (DC), Eczema (Atopic Dermatitis) (DC) Forms: [employer] (Hungarian), General Discharge Instructions - POA Present On Arrival: None - Clinical Impression Clinical Impression: Eczema, Muscle strain - Scribe Statement The provider has reviewed the documentation as recorded by the Scribcristobal Hall All medical record entries made by the Scribe were at my direction and personally dictated by me. I have reviewed the chart and agree that the record accurately reflects my personal performance of the history, physical exam, medical decision making, and the department course for this patient. I have also personally directed, reviewed, and agree with the discharge instructions and disposition.
== END 2018-12-28 10:35 | disposition home or self-care (01) ==
LOC: C.ER 09:29
DX: L30.9 Dermatitis, unspecified (principal); S76.912A Strain of unspecified muscles, fascia and tendons at thigh level, left thigh, initial encounter; W10.9XXA Fall (on) (from) unspecified stairs and steps, initial encounter